=== PATIENT | female | born 1970 | race Caucasian/White ===

== ENCOUNTER → 2021-03-07 09:19 | Outpatient (BNVA) | payer OTHER, SELFPAY | PROVIDERS: Visit Provider Surgery ==

== ENCOUNTER → 2021-06-27 15:38 | Outpatient (BNVA) | payer OTHER, SELFPAY | PROVIDERS: PCP Internal Medicine; Visit Provider Surgery ==

== ENCOUNTER 2021-07-05 06:21 | Day surgery (SDC) | payer OTHER, SELFPAY ==
[2021-06-28 13:04] VITALS: BMI 48.5
--- NOTE | 2021-07-04 11:43 | HO.ANESPROP2 ---
Documented by User: Ashley Worthington NP 07/04/21 11:44 HPI - Anesthesia Eval Consult details Narrative: 51yo F for Left Breast Biopsy Needle Localization, Breast Lumpectomy PMFSH Active Problems Active Problems: All Active Problems (Updated 06/28/21 @ 12:55 by Lucretia Price, KALYN) At high risk for breast cancer (Acute) Calcification of left breast on mammography (Acute) Hyperlipidemia (Acute 08/10/17) Impaired fasting glucose (Acute 08/10/17) Vertigo (Acute 08/10/17) Severe obesity (BMI >= 40) (Acute 06/22/20) Adult-onset obesity (Acute 08/10/17) Cough (Acute 08/10/17) Essential hypertension (Acute 08/10/17) Muscle strain of lower extremity (Acute 08/10/17) Complex sclerosing lesion of left breast (Acute) Abnormal MRI scan, head (Acute) Past Medical History Medical History Abnormal MRI scan, head Complex sclerosing lesion of left breast Elevated cholesterol HTN (hypertension) Vertigo Family History Family History Sister History of head or neck cancer Surgical History Surgical History H/O colonoscopy History of History of open reduction and internal fixation (ORIF) procedure Hx of appendectomy Hx of bilateral oophorectomy Hx of right breast biopsy Hx of tubal ligation Social History Social History Patient Tobacco Use Status: Tobacco use Unknown Advance Directives Information Provided: Yes (informational brochure mailed) Advance Directives on File: No Meds Allergies Allergy/AdvReac Type Severity Reaction Status Date / Time amoxicillin Allergy Intermediate Rash Verified 06/28/21 09:57 hydrocodone AdvReac Intermediate Nausea and Verified 06/28/21 09:57 Vomiting Home Medications Medication Instructions Recorded Confirmed Last Taken Type losartan 25 mg tablet 25 mg PO DAILY 03/07/21 06/28/21 Unknown History cyclobenzaprine 10 mg tablet mg 07/04/21 07/04/21 Unknown History clonazepam 0.5 mg tablet 0.5 mg PO 07/05/21 07/05/21 History 0.5 mg Exam Exam Date and Time: July 04, 2021 1143 Height,Weight and Vital Signs: Height 5 ft 3 in Weight 124.284 kg Assessment and Plan Assessment Anesthesia Assessment: Chart Reviewed Documented by User: Lois Banuelos MD 07/05/21 09:25 [facility] Past Medical History Medical History Abnormal MRI scan, head Complex sclerosing lesion of left breast Elevated cholesterol HTN (hypertension) Vertigo Functional capacity: independent ambulation Patient : No Family History Family History Sister History of head or neck cancer Family history of problems with anesthesia: No Surgical History Surgical History H/O colonoscopy History of History of open reduction and internal fixation (ORIF) procedure Hx of appendectomy Hx of bilateral oophorectomy Hx of right breast biopsy Hx of tubal ligation History of Problems with Anesthesia: No Social History Social History Patient Tobacco Use Status: Tobacco use Unknown Advance Directives Information Provided: Yes (informational brochure mailed) Advance Directives on File: No Meds Allergies Allergy/AdvReac Type Severity Reaction Status Date / Time amoxicillin Allergy Intermediate Rash Verified 06/28/21 09:57 hydrocodone AdvReac Intermediate Nausea and Verified 06/28/21 09:57 Vomiting Home Medications Medication Instructions Recorded Confirmed Last Taken Type losartan 25 mg tablet 25 mg PO DAILY 03/07/21 06/28/21 Unknown History cyclobenzaprine 10 mg tablet mg 07/04/21 07/04/21 Unknown History clonazepam 0.5 mg tablet 0.5 mg PO 07/05/21 07/05/21 History 0.5 mg Exam Airway Mallampati Class: IV TM Dist: >3cm Neck ROM: Full Heart: RRR Lungs: CTA Assessment and Plan Final Anesthetic Review Family History of Problems with Anesthesia: No History of Problems with Anesthesia: No ASA Class: III Final Preanesthetic Review: No Changes in Pt Med Stat, Meds/Allgs Chart Reviewed, Consent Obtained/Reviewed and Anes Risks/Benef Reviewed Patient Risk: Intermediate Procedure Risk: Low Anesthetic Plan Anesthetic Plan: GA Disposition: Standard PACU
[2021-07-05] VITALS (7 sets, daily range): BP systolic 135–161; BP diastolic 86–100; PULSE 82–92; RESP 18–20; TEMP 36.3–36.6; O2SAT 97–99
--- NOTE | ~2021-07-05 | MM_ITS ---
EXAMINATION: MM MAMMOGRAM GUIDED NEEDLE LOCALIZATION BREAST, LEFT MM NEEDLE LOCALIZATION SPECIMEN FROM THE last BREAST CLINICAL INFORMATION: Complex sclerosing lesion left breast on outside MR guided biopsy for architectural changes central 3:00 position mid depth. COMPARISON: Outside imaging from [facility]: MRI and post procedure mammography 05/30/2021, stereotactic targeting/mammography 01/13/2021, mammography 01/06/2021. TECHNIQUE NEEDLE LOC: Proper informed consent is obtained from the patient after discussion of the procedure, potential risks and complications, and alternatives including declining the procedure today. Patient was given an opportunity for questions. The patient appeared to understand. The patient consented to the procedure and signed the consent form. GUIDANCE: Digital mammography. APPROACH: Lateral Medial. TARGET: Biopsy clip marker central outer left breast. ANESTHESIA: Carbonated lidocaine 1%: 8 mL. LOCALIZATION MARKER: [employer] M[employer]. 12 cm length. The skin is prepped and local anesthesia administered. The needle is positioned and position assessed with mammography. The wire is hooked into position. [place] needle protector placed. The patient tolerated the procedure well and had no immediate complication. Procedure results discussed with Dr. Daniels prior to surgery. TECHNIQUE SPECIMEN RADIOGRAPH: Imaging of the excised specimen is performed using digital mammography in 1 view. FINDINGS SPECIMEN RADIOGRAPH: The specimen shows the distal needle and hookwire are delivered intact. The biopsy clip marker is within the specimen along with some scattered calcifications. Results were called to Dr. Rehan Daniels in the operating room at the time of imaging. MM/MM needle loc LT IMPRESSION: 1. Status post left breast needle localization with wire hooked into position. 2. Post operative specimen radiograph obtained.
[2021-07-05] MEDS: Lactated Ringers 1,000 ML 100 ML IVCONT (07:13)
--- NOTE | 2021-07-05 09:16 | MHC.SHP ---
Pre-Procedural Eval Section A Date of Service: 07/05/21 The patient is an INPATIENT: No Changes since office visit: No Cold of Flu in the past 2 weeks, No New Medical Problems, No Changes in Medication and No Patient answered all questions The History & Physical has been completed within 30 days and I have reviewed it.: Yes Section B Chief Complaint: At high risk for breast cancer Allergies: Allergies Allergy/AdvReac Type Severity Reaction Status Date / Time amoxicillin Allergy Intermediate Rash Verified 06/28/21 09:57 hydrocodone AdvReac Intermediate Nausea and Verified 06/28/21 09:57 Vomiting Plan I have reviewed the history and physical and performed a pertinent physical examination on my patient. No changes have occurred unless specified.
--- NOTE | 2021-07-05 09:25 | HO.POSTANES ---
Post Anesthesia Evaluation Post Anesthesia Evaluation Vital Signs: Vital Signs Temp Pulse Resp BP Pulse Ox 07/05/21 06:47 97.9 F 82 18 156/96 H 98
[2021-07-05] MEDS: Scopolamine 1.5 MG PATCH.TD.3 EAR-BEHIND (09:30)
--- NOTE | 2021-07-05 09:48 | HO.ANESPROP2 ---
[facility] Active Problems Active Problems: All Active Problems (Updated 06/28/21 @ 12:55 by Lucretia Price RN) At high risk for breast cancer (Acute) Calcification of left breast on mammography (Acute) Hyperlipidemia (Acute 08/10/17) Impaired fasting glucose (Acute 08/10/17) Vertigo (Acute 08/10/17) Severe obesity (BMI >= 40) (Acute 06/22/20) Adult-onset obesity (Acute 08/10/17) Cough (Acute 08/10/17) Essential hypertension (Acute 08/10/17) Muscle strain of lower extremity (Acute 08/10/17) Complex sclerosing lesion of left breast (Acute) Abnormal MRI scan, head (Acute) Past Medical History Medical History Abnormal MRI scan, head Complex sclerosing lesion of left breast Elevated cholesterol HTN (hypertension) Vertigo Functional capacity: independent ambulation Family History Family History Sister History of head or neck cancer Family history of problems with anesthesia: No Surgical History Surgical History H/O colonoscopy History of History of open reduction and internal fixation (ORIF) procedure Hx of appendectomy Hx of bilateral oophorectomy Hx of right breast biopsy Hx of tubal ligation History of Problems with Anesthesia: No Social History Social History Patient Tobacco Use Status: Tobacco use Unknown Advance Directives Information Provided: Yes (informational brochure mailed) Advance Directives on File: No Patient : No Meds Allergies Allergy/AdvReac Type Severity Reaction Status Date / Time amoxicillin Allergy Intermediate Rash Verified 06/28/21 09:57 hydrocodone AdvReac Intermediate Nausea and Verified 06/28/21 09:57 Vomiting Active Medications: Current Medications Fentanyl (Fentanyl Citrate/Pf 100 Mcg/2 Ml Vial) 25 mcg IVPUSH Q5M PRN; Protocol PRN Reason: Pain, Moderate (Pain Scale 4-6 Lactated Ringer's (Lr) 1,000 mls @ 100 mls/hr IVCONT .Q10H MICHAEL Last Admin: 07/05/21 07:13 Dose: 100 mls/hr Documented by: Promethazine HCl 12.5 mg/ (Sodium Chloride) 50.5 mls @ 202 mls/hr IV ONCE PRN PRN Reason: Nausea and Vomiting Ondansetron HCl (Ondansetron Hcl 4 Mg/2 Ml Vial) 4 mg IVPUSH ONCE PRN PRN Reason: Nausea and Vomiting Oxycodone HCl (Oxycodone Hcl Immed Release 5 Mg Tablet) 5 mg PO ONCE PRN PRN Reason: Pain, Severe (Pain Scale 7-10) Home Medications Medication Instructions Recorded Confirmed Last Taken Type losartan 25 mg tablet 25 mg PO DAILY 03/07/21 06/28/21 Unknown History cyclobenzaprine 10 mg tablet mg 07/04/21 07/04/21 Unknown History clonazepam 0.5 mg tablet 0.5 mg PO 07/05/21 07/05/21 History 0.5 mg Exam Exam Date and Time: July 05, 2021 0948 Height,Weight and Vital Signs: Height 5 ft 3 in Weight 124.284 kg Last Vital Signs Temp 97.9 F 07/05/21 06:47 Pulse 82 07/05/21 06:47 Resp 18 07/05/21 06:47 BP 156/96 H 07/05/21 06:47 Pulse Ox 98 07/05/21 06:47 Airway Heart: RRR Lungs: CTA Assessment and Plan Final Anesthetic Review Family History of Problems with Anesthesia: No History of Problems with Anesthesia: No ASA Class: III Final Preanesthetic Review: No Changes in Pt Med Stat, Consent Obtained/Reviewed and Anes Risks/Benef Reviewed Patient Risk: Intermediate Procedure Risk: Low Anesthetic Plan Anesthetic Plan: GA Disposition: Standard PACU
--- NOTE | 2021-07-05 10:37 | HO.POSTANES ---
Post Anesthesia Evaluation Post Anesthesia Evaluation Vital Signs: Vital Signs Temp Pulse Resp BP Pulse Ox 07/05/21 06:47 97.9 F 82 18 156/96 H 98 Anesthesia: General LMA Mental Status: Awake Pain Control: Satisfactory Nausea/Vomiting: None Hydration: Adequate Anesthesia-Related Issues: No Anes. Related Issues
--- NOTE | 2021-07-05 11:05 | W.PM.OPN ---
Operative Note Operative Note Date of Service: 07/05/21 Narrative: Preop diagnosis: Complex sclerosing lesion, left breast Postop diagnosis: Complex sclerosing lesion, left breast Procedure: Left breast lumpectomy with needle localization Surgeon: Rehan Daniels MD curatorial assistant: SARINA Hartley The patient is a 51-year-old female who had recently undergone left breast biopsy in [facility] or [facility]. The path report had shown a complex sclerosing lesion. Despite The benign collagen, lumpectomy was recommended in view of associated high risk lesions. She understood the technique of lumpectomy with needle localization. She was aware of the risks, benefits, and alternatives. I had discussed her case with the radiologist here in [facility]. She was brought to the operating room and placed supine on table with a little tilt to the right under general anesthesia via laryngeal mask airway. The localized needle was seen entering the lateral aspect of the left breast going medially. She had the needle localization done earlier and I had discussed the images with Dr. Wong. The left breast was prepped and draped in the usual sterile fashion. A surgical time-out was done. The patient received has been 2 g IV preoperatively. I made a transverse incision on the quadrant tangential to localizing needle using blade 15 after infiltration of the area with lidocaine 1%. I deepened the incision with electrocautery through the full-thickness of the skin and subcutaneous fat. I then used the curved Lira scissors to dissect around the localizing needles through the breast tissue. I made sure that we had generous breast tissue surrounding the needle. I periodically palpated aswe dissected deeper to maysure that we were following the direction the needle itself. Once I felt that we were past the curve of the needle a proceeded to dissect posteriorly using the same method of sharp dissection with the curved Lira scissors. In view of the very location of the breast, along with the large breast size, we had some difficulty with acting the entire specimen and had cause some tearing of parts of the breast tissue along the way. However, I had made sure that we had wide margins around the itself all the way posteriorly. I marked the superior edge of the specimen with a short stitch and the lateral aspect with a long stitch for orientation. This specimen was therefore sent for immediate re- ray. I had noticed that the biopsy changes appeared to be close superiorly so I removed more of the superior margins. This was sent as a 2nd specimen I copiously irrigated. I cauterized oozing areas. Once hemostasis was ensured, I proceeded to then reappose the deep tissue with Dexon 3-0 interrupted sutures. Skin closure was achieved with Dexon 4-0 subcuticular running stitch. Steri-Strips and dressings were applied. The incision was infiltrated with Marcaine 0.5% for postop analgesia. Prior to closure, I had received a call from the radiologist stating that the biopsy clip was within the specimen and that the entire localizing needle was intact . The procedure was therefore completed. The patient tolerated procedure well. There were no complication noted. Initial Andfinal counts of sponges and instruments were correct. Estimated blood loss about 30 cc Tthe patient was extubated without difficulty and transferred to the recovery room with stable vital signs.
== END 2021-07-05 12:35 | disposition home or self-care (01) ==
PROVIDERS: PCP Internal Medicine; Visit Provider Surgery
PROC: (CPT 19301; principal; 2021-07-05 09:30)
PROC: (CPT 19301; 2021-07-05 09:30)
DX: N60.32 Fibrosclerosis of left breast (principal); N60.22 Fibroadenosis of left breast; N60.82 Other benign mammary dysplasias of left breast; Z91.89 Other specified personal risk factors, not elsewhere classified; I10 Essential (primary) hypertension; Z79.899 Other long term (current) drug therapy; Z80.8 Family history of malignant neoplasm of other organs or systems
CPT/HCPCS: 19301; 19281; 88307; 88329; A4648; J0690; J1100; J1885; J2250; J2405; J2550; J3010

== ENCOUNTER → 2021-07-13 15:36 | Outpatient (BNVA) | payer OTHER, SELFPAY | PROVIDERS: PCP Internal Medicine; Visit Provider Surgery ==

== ENCOUNTER → 2023-01-03 15:30 | Outpatient (BNVA) | payer OTHER, SELFPAY | PROVIDERS: PCP Internal Medicine; Visit Provider Surgery ==

== ENCOUNTER 2024-01-21 09:36 | Outpatient (AMB) | payer OTHER, SELFPAY ==
--- NOTE | 2024-01-21 09:38 | A.OFFVIS_ITS ---
Vital Signs 01/21/24 09:50 Weight 238 lb Intake Visit Reasons: Yearly Breast Exam Intake Note: This patient presents for a yearly follow-up breast examination. Patient c/o; reports no breast complaints at this time. Talent Acquisition Administrator Required: No Accompanied by: Self / Same As Patient Allergies amoxicillin Allergy (Intermediate, Verified 01/21/24 09:50) Rash hydrocodone Adverse Reaction (Intermediate, Verified 01/21/24 09:50) Nausea and Vomiting HPI HPI Yearly Breast Exam: Details: She is here for follow-up for her yearly breast exam. She has been following the office closely for several years because of an aunt having breast cancer at a young age. She does her mammograms imaging studies in [place]. She denies any palpable breast masses. She denies any new complaints. She says she feels well overall. She says she has lost significant amounts of weight after getting into a weight loss program on her own. She had an MRI in 08/04/2023 and this was unremarkable. She also says that she had a mammogram last month and this did not reveal any significant findings. I do not have the report for this yet. She usually undergoes a mammogram in between her MRIs as well. [facility] Medical History Vertigo Elevated cholesterol HTN (hypertension) Complex sclerosing lesion of left breast Abnormal MRI scan, head Surgical History History of lumpectomy of left breast Hx of bilateral oophorectomy Hx of right breast biopsy History of Hx of appendectomy History of open reduction and internal fixation (ORIF) procedure Hx of tubal ligation H/O colonoscopy Family History Sister History of head or neck cancer Social History Patient Tobacco Use Status: Tobacco use Unknown Review of Systems Const Denies chills and Denies fever(s) Card Denies chest pain, Denies dyspnea and Denies dyspnea on exertion Resp Denies cough, Denies dyspnea and Denies dyspnea on exertion GI Denies hematochezia and Denies change in bowel habits Denies hematuria Musc Denies back pain and Denies limited range of motion Neuro Denies focal weakness and Denies convulsions Psych Denies depression and Denies mood swings Physical Exam Const Other: Morbidly obese General: comfortable and no acute distress Orientation/consciousness: patient oriented x3 Neck Neck: Yes no lymphadenopathy Chest Other: No palpable breast masses, no axillary lymphadenopathy, no nipple or skin changes does not like her new schedule she get move dry has smoked everything up Resp Auscultation: clear to auscultation bilaterally Cardio Rhythm: regular rhythm GI Palpation (GI): Soft to palpation, nontender and no guarding Neuro General: patient oriented x3 Assessment & Plan Assessment & Plan (1) At high risk for breast cancer: Code(s): Z91.89 - Other specified personal risk factors, not elsewhere classified Category: Medical Plan: Current exam does not reveal any palpable breast masses or any nipple or skin changes She actually says that she had a mammogram last month which was unremarkable. This was also done in [place] We will get the report for this She is to see me every year for her breast exams She is scheduled to have an MRI in June,. She also has a previous genetic testing which did not reveal any significant mutations. Coding Level of Care Code Est Pt Level 3 (19294) Diagnoses At high risk for breast cancer Z91.89
== END 2024-01-21 10:10 | disposition home or self-care (01) ==
PROVIDERS: PCP Internal Medicine; Visit Provider Surgery
DX: Z80.3 Family history of malignant neoplasm of breast (principal); Z91.89 Other specified personal risk factors, not elsewhere classified
CPT/HCPCS: 99213

== ENCOUNTER → 2024-01-21 09:36 | Outpatient (BNVA) | payer OTHER, SELFPAY | PROVIDERS: PCP Internal Medicine; Visit Provider Surgery ==